=== PATIENT | female | born 1940 ===

== ENCOUNTER 2017-08-24 15:45 | Emergency (ER) | payer MEDICARE, MEDICAID ==
[2017-08-24 16:00] VITALS: BMI 21.9
[2017-08-24 16:02] VITALS: BP 155/69; PULSE 64; RESP 20; TEMP 98.7; O2SAT 98
== END 2017-08-24 16:00 | disposition left against medical advice (07) ==
LOC: C.ER 15:45
DX: Z02.89 Encounter for other administrative examinations (principal); Z00.00 Encounter for general adult medical examination without abnormal findings

== ENCOUNTER 2017-11-25 11:18 | Emergency (ER) | payer MEDICARE, MEDICAID ==
[2017-11-25 11:18] VITALS: BMI 21.9
[2017-11-25 11:28] VITALS: TEMP 98.2
[2017-11-25] MEDS ORDERED: Sodium Chloride 0.9% 1,000 ML IV ONE (11:34)
[2017-11-25] MEDS ORDERED: Sodium Chloride 0.9% 1,000 ML ONE (11:54)
--- NOTE | 2017-11-25 11:59 | C.PDOC ---
History Of Present Illness 77 year old female, with PMHx of rheumatoid arthritis, HTN, hypothyroidism, presents to ED for evaluation of gradual development of epigastric, and RUQ abdominal pain over the past week. As per daughter, the symptoms have significantly worsened since this morning. Notes that pain is constant, severe and is associated with nausea and 3 episodes of non bilious vomiting. Otherwise , denies fever, chills, headache, dizziness, neck pain, chest pain, SOB, palpitation, hematemesis, melena, diarrhea, back pain, or UTI symptoms. Ambulate to ED appears in pain. Time Seen by Provider: 11/25/17 11:26 Chief Complaint (Nursing): Abdominal Pain History Per: Patient, Family (daughter) History/Exam Limitations: no limitations Onset/Duration Of Symptoms: Days, Worse Since (this morning) Current Symptoms Are (Timing): Still Present Severity: Severe Location Of Pain/Discomfort: RUQ, Epigastric Radiation Of Pain To:: None Quality Of Discomfort: "Pain" Associated Symptoms: Nausea, Vomiting. denies: Diarrhea, Loss Of Appetite, Back Pain, Chest Pain, Constipation, Urinary Symptoms Exacerbating Factors: None Alleviating Factors: None Recent travel outside of the [place]: No Additional History Per: Patient Abnormal Vaginal Bleeding: No Past Medical History Reviewed: Historical Data, Nursing Documentation, Vital Signs Vital Signs: Last Vital Signs Temp 98.2 F 11/25/17 11:20 Pulse 71 11/25/17 11:20 Resp 18 11/25/17 11:20 BP 178/61 H 11/25/17 11:20 Pulse Ox 100 11/25/17 13:17 - Medical History PMH: HTN, Hypercholesterolemia, Rheumatoid Arthritis Denies: Chronic Kidney Disease - [facility] Procedures INTRODUCE ANTI-INFLAM IN PERIPH NRV, PLEXI, PERC (04/19/17) INTRODUCE LOCAL ANESTH IN PERIPH NRV, PLEXI, PERC (04/19/17) INTRODUCTION OF SERUM/TOX/VACCINE INTO MUSCLE, PERC APPROACH (04/19/17) REPLACE OF L SHOULDER JT WITH REV BL & SOCKT, OPEN APPROACH (04/19/17) REPOSITION LEFT UPPER ARM TENDON, OPEN APPROACH (04/19/17) TRANSFUSE NONAUT RED BLOOD CELLS IN PERIPH VEIN, PERC (04/19/17) Family History: States: Unknown Family Hx - Social History Hx Alcohol Use: No Hx Substance Use: No Review Of Systems Except As Marked, All Systems Reviewed And Found Negative. Constitutional: Negative for: Fever, Chills Cardiovascular: Negative for: Chest Pain, Palpitations Respiratory: Negative for: Cough, Shortness of Breath Gastrointestinal: Positive for: Nausea, Vomiting, Abdominal Pain. Negative for : Diarrhea, Constipation, Hematemesis Genitourinary: Negative for: Dysuria, Frequency, Hematuria, Vaginal Discharge Musculoskeletal: Negative for: Back Pain Physical Exam - Physical Exam Appears: Well, Non-toxic, Other (In painful distress) Skin: Normal Color, Warm, Dry, No Rash Head: Normacephalic Eye(s): bilateral: PERRL Nose: No Flaring, No Discharge Oral Mucosa: Moist, No Drooling Throat: No Erythema, No Drooling Neck: Trachea Midline, Supple Cardiovascular: Rhythm Regular, No Murmur, No JVD Respiratory: No Accessory Muscle Use, No Rales, No Rhonchi, No Wheezing Gastrointestinal/Abdominal: Bowel Sounds, Soft, Tenderness (epigastric), No Distention, No Guarding, No Rebound Back: No CVA Tenderness Extremity: Normal ROM, No Deformity, No Swelling Neurological/Psych: Oriented x3, Normal Speech ED Course And Treatment - Laboratory Results Result Diagrams: 11/25/17 12:05 11/25/17 12:05 Lab Interpretation: No Acute Changes ECG: Interpreted By Me, Viewed By Me ECG Rhythm: Sinus Bradycardia ECG Interpretation: No Acute Changes Interpretation Of ECG: Normal axis. No acute ST/T wave changes. Rate From EC (bpm) O2 Sat by Pulse Oximetry: 100 (RA) Pulse Ox Interpretation: Normal - CT Scan/US CT abd/pelvis Other Rad Studies (CT/US): Radiology Report Reviewed CT/US Interpretation: Exterminator : Dennis Douglass MD. Approver2 : Report Date : 11/25/2017 14:44:48. My Comment : . PROCEDURE: CT Abdomen and Pelvis with contrast. HISTORY: RUQ. COMPARISON: None. TECHNIQUE: Contrast dose: Visipaque 320, 100 cc. Radiation dose: Total exam DLP = 312.29 mGy-cm. This CT exam was performed using one or more of the following dose reduction techniques: Automated exposure control, adjustment of the mA and/or kV according to patient size, and/or use of iterative reconstruction technique. FINDINGS: LOWER THORAX: Cardiomegaly. No pleural or pericardial effusion. Small hiatal hernia. Minimal bilateral basilar dependent atelectasis. LIVER: Diminished hepatic attenuation diffusely noted compatible hepatic steatosis. No definitive intrahepatic biliary duct dilatation or mass. Borderline hepatomegaly. GALLBLADDER AND BILE DUCTS: A distended gallbladder is appreciate with limited cholelithiasis at the dependent portion. No mural thickening or pericholecystic fluid collection evident. PANCREAS: Unremarkable. No gross lesion or ductal dilatation. SPLEEN: Diffuse splenic granulomata are identified with the spleen otherwise unremarkable. ADRENALS: Unremarkable. No mass. KIDNEYS AND URETERS: Unremarkable. No hydronephrosis. No solid mass. VASCULATURE: An atherosclerotic nonaneurysmal abdominal aorta is identified. BOWEL: Stomach appears collapsed. The bowel does not appear obstructed. Submucosal fatty changes within large bowel may indicate chronic inflammatory bowel process. No acute insert after pericolic reactive changes are identified moderately prominent fecal loading seen at the ascending colon and is otherwise mild. Left hemicolon is collapsed. APPENDIX: Normal appendix. PERITONEUM: Unremarkable. No free fluid. No free air. Tiny left paraumbilical hernia containing only fat. LYMPH NODES: Unremarkable. No enlarged lymph nodes. BLADDER: Decompressed and otherwise unremarkable. REPRODUCTIVE: Prior hysterectomy. BONES: Scoliotic thoracolumbar spinal deformity. No fracture or destructive bony lesion appreciable. Prior right shoulder replacement cause artifacts obscuring the mid to inferior pelvis somewhat. OTHER FINDINGS: None. IMPRESSION: 1. A distended gallbladder is appreciate without mural thickening or pericholecystic fluid collection. Cholelithiasis is minimal, layering the dependent portion of the body and neck. No definitive biliary tree dilatation grossly evident. Consider potential cholecystitis though this is not definite. 2. Hepatic steatosis. Borderline hepatomegaly. 3. Other lesser findings as discussed above. Progress Note: Blood work, urinalysis, EKG ordered and reviewed. Pt was given Zofran, Pepcid, Toradol, Protonix, and IV fluids. Pt was OBS in ED for 3hours and reports modearte improvemnet in pain. On re-evaluation, pt is afebrile, hemodynamicaly stable. Non-toxic. Tolerate Po well in Ed. ENT: no acute findings. Lungs: CTA B/L, BS equal B/L. CVS: (+)S1S2, reg. Abd: benign, (-) guarding, (-) rebound. back: (-) CVA tenderness. Neurologicaly intact. Blood work review,no acute findings, no leukocytosis, electrolytes normal. UA (+) trace RBC. CT abd/plevis (+) gallstones without mural thickening or pericholecystic fluid collection. Pt has clinical findings c/w epigastric/RUQ pain r/o cholelithiasis. Pt advised on course of ds. rfef. to f/u with PMD, Surgery in 2-3 days for re-eval. return if any worsening or new changes. Disposition Counseled Patient/Family Regarding: Studies Performed, Diagnosis, Need For Followup, Rx Given - Disposition Referrals: Bel Jesus MD [Staff Provider] - Disposition: HOME/ ROUTINE Disposition Time: 14:51 Condition: STABLE Additional Instructions: Encourage fluids Take medication as prescribed Follow up with PMD in 2-3 days for re-evaluation. return to ED if any worsening or new changes. Prescriptions: Ondansetron ODT [Zofran ODT] 1 odt PO BID PRN #6 odt PRN Reason: Nausea/Vomiting traMADol [Ultram] 50 mg PO TID #7 tab Instructions: Gallstones Forms: [employer] (Bengali) Print Language: ZIMBABWEAN - Clinical Impression Clinical Impression: Cholecystitis, Cholelithiasis - PA / CORPORATE COMPLIANCE DIRECTOR / Resident Statement MD/DO has reviewed & agrees with the documentation as recorded. - Scribe Statement The provider has reviewed the documentation as recorded by the Armani Wong All medical record entries made by the Armani were at my direction and personally dictated by me. I have reviewed the chart and agree that the record accurately reflects my personal performance of the history, physical exam, medical decision making, and the department course for this patient. I have also personally directed, reviewed, and agree with the discharge instructions and disposition.
[2017-11-25 12:15] LABS: BASO % 0.3 % (0.0-2.0); EOS # 0.8 K/uL (0.0-0.7); EOS % 8.1 % (0.0-4.0); HEMOGLOBIN 12.3 g/dL (11.0-16.0); LYMPH # 1.6 K/uL (1.0-4.3); LYMPH % 16.6 % (20.0-40.0); MEAN CELL VOLUME 92.8 fL (81.0-99.0); MEAN CORPUSCULAR HEMOGLOBIN 32.2 pg (27.0-31.0); MEAN CORPUSCULAR HGB CONC 34.7 g/dL (33.0-37.0); MEAN PLATELET VOLUME 9.2 fL (7.2-11.7); MONO # 0.7 K/uL (0.0-0.8); MONO % 6.9 % (0.0-10.0); NEUT # 6.7 K/uL (1.8-7.0); NEUT % 68.1 % (50.0-75.0); RBC 3.81 Mil/uL (3.80-5.20); WHITE BLOOD COUNT 9.8 K/uL (4.8-10.8)
[2017-11-25 12:26] LABS: ALBUMIN 3.6 g/dL (3.5-5.0); ALT/SGPT 17 U/L (9-52); AST/SGOT 22 U/L (14-36); BLOOD UREA NITROGEN 13 mg/dL (7-17); CALCIUM 8.2 mg/dl (8.6-10.4); GFR AFRICAN-AMERICAN > 60; GFR NON-AFRICAN AMERICAN > 60; LIPASE 85 U/L (23-300)
[2017-11-25] MEDS ORDERED: Iodixanol 320 MG/ML 100 ML BOTTLE IV ONE (13:59)
--- NOTE | 2017-11-25 14:46 | CT ---
PROCEDURE: CT Abdomen and Pelvis with contrast HISTORY: RUQ COMPARISON: None. TECHNIQUE: Contrast dose: Visipaque 320, 100 cc Radiation dose: Total exam DLP = 312.29 mGy-cm. This CT exam was performed using one or more of the following dose reduction techniques: Automated exposure control, adjustment of the mA and/or kV according to patient size, and/or use of iterative reconstruction technique. FINDINGS: LOWER THORAX: Cardiomegaly. No pleural or pericardial effusion. Small hiatal hernia. Minimal bilateral basilar dependent atelectasis. LIVER: Diminished hepatic attenuation diffusely noted compatible hepatic steatosis. No definitive intrahepatic biliary duct dilatation or mass. Borderline hepatomegaly. GALLBLADDER AND BILE DUCTS: A distended gallbladder is appreciate with limited cholelithiasis at the dependent portion. No mural thickening or pericholecystic fluid collection evident. PANCREAS: Unremarkable. No gross lesion or ductal dilatation. SPLEEN: Diffuse splenic granulomata are identified with the spleen otherwise unremarkable. ADRENALS: Unremarkable. No mass. KIDNEYS AND URETERS: Unremarkable. No hydronephrosis. No solid mass. VASCULATURE: An atherosclerotic nonaneurysmal abdominal aorta is identified. BOWEL: Stomach appears collapsed. The bowel does not appear obstructed. Submucosal fatty changes within large bowel may indicate chronic inflammatory bowel process. No acute insert after pericolic reactive changes are identified moderately prominent fecal loading seen at the ascending colon and is otherwise mild. Left hemicolon is collapsed. APPENDIX: Normal appendix. PERITONEUM: Unremarkable. No free fluid. No free air. Tiny left paraumbilical hernia containing only fat. LYMPH NODES: Unremarkable. No enlarged lymph nodes. BLADDER: Decompressed and otherwise unremarkable. REPRODUCTIVE: Prior hysterectomy. BONES: Scoliotic thoracolumbar spinal deformity. No fracture or destructive bony lesion appreciable. Prior right shoulder replacement cause artifacts obscuring the mid to inferior pelvis somewhat. OTHER FINDINGS: None. IMPRESSION: 1. A distended gallbladder is appreciate without mural thickening or pericholecystic fluid collection. Cholelithiasis is minimal, layering the dependent portion of the body and neck. No definitive biliary tree dilatation grossly evident. Consider potential cholecystitis though this is not definite. 2. Hepatic steatosis. Borderline hepatomegaly. 3. Other lesser findings as discussed above.
[2017-11-25 14:48] LABS: SQUAMOUS EPITHIAL 1 /hpf (0-5); URINE BILIRUBIN NEGATIVE (NEGATIVE); URINE BLOOD 2+ (NEGATIVE); URINE CLARITY Clear (Clear); URINE COLOR Yellow (YELLOW); URINE GLUCOSE (UA) NORMAL (Normal); URINE LEUKOCYTE ESTERASE NEG Leu/uL (Negative); URINE PROTEIN NEGATIVE (NEGATIVE); URINE UROBILINOGEN NORMAL mg/dL (0.2-1.0)
[2017-11-25] MEDS ORDERED: Piperacillin/Tazobact 3.375 gm 100 ML IV STA (14:50)
[2017-11-25] MEDS ORDERED: Piperacillin/Tazobact 3.375 gm 100 ML IVPB ONE (15:04)
[2017-11-25 16:02] VITALS: BP 158/70; PULSE 75; RESP 16; O2SAT 98
--- NOTE | 2017-11-26 12:38 | CARD ---
APPROVED REPORT EKG Measurement Heart [id number] <Conclusion> Sinus bradycardia Otherwise normal ECG
== END 2017-11-25 16:01 | disposition home or self-care (01) ==
LOC: C.ER 11:18
DX: K80.20 Calculus of gallbladder without cholecystitis without obstruction (principal)
CPT/HCPCS: 74177; 80053; 81001; 83690; 85025; 93005; 96361; 96365; 96372; 96375; 99285; C9113; J1885; J2405; J2543; J7040; Q9967